=== PATIENT | female | born 1965 | race Two or more races ===

== ENCOUNTER 2025-03-17 10:24 | Day surgery (SDC) | payer OTHER, SELFPAY ==
[2025-03-17 10:40] VITALS: BMI 28.1
[2025-03-17 11:29] VITALS: BP 130/88
--- NOTE | 2025-03-17 14:45 | ITS.CL.IMPLP ---
Platform Loader - Implant Loop
Implant Loop
Procedure Report:
Primary Physician: Dr Kevon Caputo
Primary Linen Room Attendant: Dr Mayranne Messer
Procedure Date: 03/17/2025
Procedure:
1. Removal of Implanted Loop Recorder
History/Indication:
1. See office H&P for complete history.
2. Patient is a pleasant 60-year-old female with a past medical history significant for NSTEMI, scad, hyperlipidemia, pulmonary nodule, migraines, meningioma, CVA who underwent ILR implant May 2022 which has not demonstrated any arrhythmias or
pauses. Device has now reached end of service/end-of-life and patient is electing for ILR explant.
Methods:
After informed consent was obtained, the patient was brought to the EP laboratory. Continuous ECG, blood pressure, and pulse oximetry were initiated. Sedation was not required.
The left chest was prepared and draped in a sterile fashion. A time-out was called. Local anesthesia was injected in the subcutaneous tissue overlying the ILR. An incision was made into the chronic scar. The subcutaneous tissue was dissected the
level of the chronic capsule. The capsule was opened and the ILR was removed.
The pocket was flushed with antibiotic solution and hemostasis was assured. Absorbable suture was used to close the wound. Manual pressure was applied until hemostasis resulted. Topical skin adhesive was applied to the skin.
Explanted device: [employer] Model: JOT Dx, Serial#[id number]
Conclusions:
1. Successful removal of ILR
Recommendations:
1. Discharge to home
2. Follow-up will be arranged in the office 7-10 days post-discharge
Moshe Marshall DO, FACC, RS
Clinical Cardiac Acquisitions Analyst
cc: Dr Maryanne Messer, Dr Kevon Caputo
[2025-03-17 15:45] VITALS: BP 155/88
== END 2025-03-17 16:15 | disposition home or self-care (01) ==
LOC: CATH 10:24
PROVIDERS: ATTENDING PHYSICIAN Internal Medicine Cardiovascular Disease; FAMILY PHYSICIAN Family Medicine; OTHER PHYSICIAN Internal Medicine Cardiovascular Disease
DX: Z09 Encounter for follow-up examination after completed treatment for conditions other than malignant neoplasm (principal); Z79.02 Long term (current) use of antithrombotics/antiplatelets; Z79.899 Other long term (current) drug therapy; E78.5 Hyperlipidemia, unspecified; I25.2 Old myocardial infarction; R00.2 Palpitations
CPT/HCPCS: 33286

== ENCOUNTER → 2025-03-27 08:08 | Outpatient (REF) | payer OTHER, SELFPAY | LOC: RCS 08:08 | PROVIDERS: ATTENDING PHYSICIAN Physician Assistant Medical; FAMILY PHYSICIAN Family Medicine | DX: I21.4 Non-ST elevation (NSTEMI) myocardial infarction (principal); I25.42 Coronary artery dissection; R07.89 Other chest pain | CPT/HCPCS: 93306 ==